=== PATIENT | male | born 1965 | race Two or more races ===

== ENCOUNTER → 2017-09-24 | Emergency (ER) | payer OTHER ==
[~2017-09-24] VITALS: Ht 175.3 cm; Wt 90.7 kg
[~2017-09-24] MED LIST: FLECTOR1 EACH TD; LIPITOR20 MG; NORVASC2.5 MG; SYNTHROID50 MCG
== END | disposition home or self-care (01) ==
LOC: ER 17:23
DX: M54.5 Low back pain (principal)

== ENCOUNTER 2018-05-19 07:53 | Outpatient (CLI) | payer OTHER | END 2018-05-19 07:56 | disposition home or self-care (01) | LOC: SONOGRAMA 07:53 → MAMO-SONO 08:15 | DX: R10.13 Epigastric pain (principal); K29.30 Chronic superficial gastritis without bleeding ==

== ENCOUNTER 2019-10-26 07:22 | Outpatient (CLI) | payer OTHER | END 2019-10-26 07:23 | disposition home or self-care (01) | LOC: SONOGRAMA 07:22 → MAMO-SONO 07:45 | PROVIDERS: ATTEND Internal Medicine Gastroenterology | DX: R10.13 Epigastric pain (principal); K57.30 Diverticulosis of large intestine without perforation or abscess without bleeding ==

== ENCOUNTER 2019-11-25 07:30 | Outpatient (CLI) | payer OTHER | END 2019-11-25 07:49 | disposition home or self-care (01) | LOC: TOM 07:30 | PROVIDERS: ATTEND Internal Medicine | DX: R10.83 Colic (principal) ==

== ENCOUNTER 2021-04-18 07:23 | Outpatient (CLI) | payer OTHER | END 2021-04-18 07:35 | disposition home or self-care (01) | LOC: RAD 07:23 | PROVIDERS: ATTEND Internal Medicine | DX: M54.6 Pain in thoracic spine (principal); R10.84 Generalized abdominal pain ==

== ENCOUNTER 2021-12-14 07:15 | Outpatient (CLI) | payer OTHER | END 2021-12-14 07:32 | disposition home or self-care (01) | LOC: SONOGRAMA 07:15 | PROVIDERS: ATTEND Internal Medicine Gastroenterology | DX: R74.01 Elevation of levels of liver transaminase levels (principal); R10.13 Epigastric pain ==

== ENCOUNTER 2022-08-09 07:38 | Outpatient (CLI) | payer OTHER | END 2022-08-09 07:48 | disposition home or self-care (01) | LOC: SONOGRAMA 07:38 | PROVIDERS: ATTEND Internal Medicine | DX: R10.84 Generalized abdominal pain (principal); K76.0 Fatty (change of) liver, not elsewhere classified ==

== ENCOUNTER 2025-05-14 08:19 | Emergency (ER) | payer OTHER ==
[~2025-05-14] VITALS: Ht 175.3 cm; Wt 97.5 kg
[2025-05-14] MEDS ORDERED: LOSARTAN POTASS50 MG (08:36)
[2025-05-14] MEDS ORDERED: METFORMIN HCL500 M3 (08:37)
[2025-05-14] MEDS ORDERED: KETOROLAC TROMETHAMINE 60 MG VIAL IM ONE ×2 (09:09→09:15)
[2025-05-14] MEDS ORDERED: DEXAMETHASONE SODIUM PHOSPHATE 4 MG/ML VIAL ONE (09:09)
[2025-05-14] MEDS ORDERED: ACETAMINOPHEN 500 MG GEL..CAP PO ONE ×2 (09:09→09:15)
[2025-05-14] MEDS ORDERED: DEXAMETHASONE SODIUM PHOSPHATE 4 MG/ML VIAL IM ONE (09:15)
== END 2025-05-14 09:36 | disposition home or self-care (01) ==
LOC: ER 08:20
DX: M54.59 Other low back pain (principal); I10 Essential (primary) hypertension; E03.8 Other specified hypothyroidism; E11.9 Type 2 diabetes mellitus without complications; Z79.84 Long term (current) use of oral hypoglycemic drugs; Z91.013 Allergy to seafood; Z91.018 Allergy to other foods